=== PATIENT | female | born 1975 | race Caucasian/White ===

== ENCOUNTER 2021-04-02 12:59 | Emergency (ER) | payer OTHER ==
[2021-04-02 15:29] LABS: HEMOGLOBIN 14.5 gm/dl (12.3-15.3); RED BLOOD COUNT 4.59 M/UL (4.00-5.10); WHITE BLOOD COUNT 14.2 K/UL (4.5-11.0)
[2021-04-02 16:06] LABS: BUN/CREATININE RATIO 15 (0-10)
[2021-04-02] MEDS ORDERED: PHENERGAN 50 MG50 MG PR (16:09)
[2021-04-02] MEDS ORDERED: ZOFRAN ODT 4 MG4 MG SL (16:09)
== END 2021-04-02 17:12 | disposition home or self-care (01) ==
LOC: ER1 12:59
PROVIDERS: Emergency Medicine
DX: F11.23 Opioid dependence with withdrawal (principal); F17.200 Nicotine dependence, unspecified, uncomplicated; F19.90 Other psychoactive substance use, unspecified, uncomplicated
CPT/HCPCS: 71045; 80053; 83690; 85025; 96374; 99284; J2405

== ENCOUNTER 2021-04-03 12:49 | Emergency (ER) | payer OTHER ==
[~2021-04-03 12:49] MED LIST: PHENERGAN 50 MG50 MG PR; ZOFRAN ODT 4 MG4 MG SL
[2021-04-03 14:31] LABS: HEMOGLOBIN 15.7 gm/dl (12.3-15.3); RED BLOOD COUNT 4.9 M/UL (4.00-5.10); WHITE BLOOD COUNT 13.2 K/UL (4.5-11.0)
[2021-04-03 15:00] LABS: BUN/CREATININE RATIO 13 (0-10)
== END 2021-04-03 17:35 | disposition home or self-care (01) ==
LOC: ER1 12:49
PROVIDERS: Emergency Medicine
DX: R10.9 Unspecified abdominal pain (principal); F11.23 Opioid dependence with withdrawal
CPT/HCPCS: 80053; 83690; 84703; 85025; 96374; 99284; J2550; Q9967